=== PATIENT | female | born 1955 | race Caucasian/White ===

== ENCOUNTER 2016-06-18 08:12 | Emergency (ER) | payer MEDICARE, OTHER ==
[~2016-06-18 08:12] MED LIST: ACETAMINOPHEN325 MG PO; ADVAIR 250-501 EACH IH; ADVAIR IH; ALBUTEROL S3 ML/VIAL IH; ALLOPURINOL100 MG PO; ASPIRIN325 MG PO; BONIVA150 MG PO; BROVANA15 MCG/2 M IH; BUSPIRONE HCL10 MG PO; CALCIUM 500 +1 EAC1 PO; CALCIUM 600 +1 EAC3 PO; CYANOCOBAL1000 MCG/M IM; ENTOCORT EC3 MG PO; ENTYVIO300 MG IV; FERROUS SULFAT325 MG PO; FOLIC ACID1 MG PO; GAVISCON LIQUI355 ML PO; LEVAQUIN500 MG PO; LYRICA300 MG PO; MAGNESIUM OXID400 MG PO; MAGOX 400400 MG PO; METHOTREXATE2.5 MG PO; NASONEX17 GM NS; NORVASC5 MG PO; OMEPRAZOLE20 MG PO; PATANOL5 ML OU; PENTASA500 MG PO; POTASSIUM CHLO10 MEQ PO; PREDNISONE10 MG PO; PRILOSEC20 M1 PO; PROCTOSOL-HC28.35 GM TOP; PROZAC20 MG PO; PULMICORT0.5 MG/2 M IH; REQUIP1 MG PO; SYNTHROID200 MCG PO; TESSALON PERLE100 MG PO; TOPROL XL25 MG PO; VALIUM5 MG PO; VITAMIN D1000 UNI1 PO; XOPENEX HFA15 GM IH; ZADITOR5 ML OU; ZYLOPRIM100 MG PO; ZYRTEC10 MG PO
== END 2016-06-18 11:02 | disposition short-term general hospital (02) ==
LOC: ER 08:12
DX: N17.9 Acute kidney failure, unspecified (principal); E86.0 Dehydration; I10 Essential (primary) hypertension; Z87.442 Personal history of urinary calculi; Z90.49 Acquired absence of other specified parts of digestive tract; Z79.82 Long term (current) use of aspirin; Z79.899 Other long term (current) drug therapy; Z88.8 Allergy status to other drugs, medicaments and biological substances
CPT/HCPCS: 36415; 96361; 96374

== ENCOUNTER 2016-07-08 20:51 | Emergency (ER) | payer MEDICARE, OTHER | END 2016-07-08 22:37 | disposition home or self-care (01) | LOC: ER 20:51 | DX: S80.02XA Contusion of left knee, initial encounter (principal); S80.12XA Contusion of left lower leg, initial encounter; S40.012A Contusion of left shoulder, initial encounter; Z79.82 Long term (current) use of aspirin; Z79.899 Other long term (current) drug therapy; Z88.8 Allergy status to other drugs, medicaments and biological substances; W18.09XA Striking against other object with subsequent fall, initial encounter; Y92.009 Unspecified place in unspecified non-institutional (private) residence as the place of occurrence of the external cause ==